=== PATIENT | female | born 1985 | race Caucasian/White ===

== ENCOUNTER 2017-10-14 08:22 | Inpatient (IN) | payer OTHER ==
[2017-10-14 09:27] LABS: ABS Basophils 0.1 10^3/ul (0-0.2); ABS Eosinophils 0 10^3/ul (0-0.6); ABS Lymphocytes 1.1 10^3/ul (1.0-4.8); ABS Monocytes 0.8 10^3/ul (0-0.8); ABS Nucleated RBC 0 10^3/ul; Eosinophil % 0.1 % (0-6); Hematocrit 40 % (35-47); Hemoglobin 13.8 g/dl (12.0-16.0); Lymphocyte % 5.9 % (25-47); Mean Corpuscular HGB Conc 34 g/dl (31-36); Mean Corpuscular Hemoglobin 31 pg (27-31); Mean Corpuscular Volume 91 fL (80-97); Mean Platelet Volume 9.4 um3 (7.4-10.4); Nucleated Red Blood Cells % 0; Platelet Count 174 10^3/ul (150-450); Red Blood Count 4.43 10^6/ul (4.00-5.40); Red Cell Distribution Width 14 % (10.5-15)
[2017-10-14 09:56] LABS: EGFR Non-African American 103.8 (>60); Uric Acid 4.9 mg/dL (2.3-6.6)
[2017-10-14 10:50] LABS: Urine Appearance Cloudy; Urine Blood 1+ (Negative); Urine Color Yellow; Urine Ketones Negative (Negative); Urine Protein Negative (Negative); Urine Specific Gravity 1.018 (1.010-1.030); Urine Urobilinogen Negative (Negative)
--- NOTE | 2017-10-14 11:08 | HP ---
General Information - General Information Maternal Age: 31 Grav: 1 Para: 0 SAB: 0 IEA: 0 Estimated Due Date: 10/06/17 Determined By: LMP Gestational Age in Weeks and Days: 41 Weeks and 1 Days Maternal Blood Type and Rh: O Positive - Results this Serology/RPR Result: Non-Reactive Rubella Result: Non-Immune HBsAg Result: Negative HIV Result: Negative GBS Culture Result: Negative Past Medical History Delivery History: See Records Delivery History Comment: Primip Pertinent Past Medical History: See Records Past Medical History Comment: Hypothyroidism on replacement Pertinent Past Surgical History: See Records Past Surgical History Comment: [place] tooth extraction Pertinent Family History: See Records Family History Comment: Mother: HTN, heart disease Father: uknown causes MGM: old age MGF: stomach, esophageal cancer - Antepartal Records Antepartal Records: Reviewed, Complicated by: - 2VC, appropriate growth. Gestational HTN in labor Review of Systems Constitutional: Uncomfortable - with UCs CV Complaint: No Respiratory: Shortness of Breath: No Gastrointestinal: No Nausea/Vomiting, Normal Bowel Movement Genitourinary: Bleeding - +bloody show, No Dysuria, No Leaking Fluid Musculoskeletal: Contractions Neurological: No Headache, No Visual Changes Movement: Normal Exam Allergies/Adverse Reactions: Allergies No Known Allergies Allergy (Verified 10/14/17 09:37) BP: 137/97 140/91 129/90 HR: 71 RR: 20 T: 98.5 Lab Values - Entire Visit: Laboratory Tests 10/14/17 10/14/17 10/14/17 09:14 09:14 09:14 WBC 19.0 H RBC 4.43 Hgb 13.8 Hct 40 MCV 91 MCH 31 MCHC 34 RDW 14 Plt Count 174 MPV 9.4 Neut % (Auto) 89.4 H Lymph % (Auto) 5.9 L [place] % (Auto) 4.1 Eos % (Auto) 0.1 Baso % (Auto) 0.5 Absolute Neuts (auto) 17.0 H Absolute Lymphs (auto) 1.1 Absolute Monos (auto) 0.8 Absolute Eos (auto) 0 Absolute Basos (auto) 0.1 Absolute Nucleated RBC 0 Nucleated RBC % 0 Sodium 135 L Potassium 3.9 Chloride 103 Carbon Dioxide 23 Anion Gap 9 BUN 9 Creatinine 0.66 Est GFR ( Amer) 133.5 Est GFR (Non-Af Amer) 103.8 BUN/Creatinine Ratio 13.6 Glucose 89 Uric Acid 4.9 Calcium 10.0 Total Bilirubin 0.40 AST 19 ALT 11 Alkaline Phosphatase 176 H Total Protein 6.9 Albumin 3.5 Globulin 3.4 Albumin/Globulin Ratio 1.0 Urine Color Urine Appearance Urine pH Ur Specific [place] Urine Protein Urine Ketones Urine Blood Urine Nitrate Urine Bilirubin Urine Urobilinogen Ur Leukocyte Esterase Urine WBC (Auto) Urine RBC (Auto) Ur Squamous Epith Cells Urine Bacteria Urine Yeast Urine Glucose Blood Type O Positive Antibody Screen Negative 10/14/17 10:16 WBC RBC Hgb Hct MCV MCH MCHC RDW Plt Count MPV Neut % (Auto) Lymph % (Auto) [place] % (Auto) Eos % (Auto) Baso % (Auto) Absolute Neuts (auto) Absolute Lymphs (auto) Absolute Monos (auto) Absolute Eos (auto) Absolute Basos (auto) Absolute Nucleated RBC Nucleated RBC % Sodium Potassium Chloride Carbon Dioxide Anion Gap BUN Creatinine Est GFR ( Amer) Est GFR (Non-Af Amer) BUN/Creatinine Ratio Glucose Uric Acid Calcium Total Bilirubin AST ALT Alkaline Phosphatase Total Protein Albumin Globulin Albumin/Globulin Ratio Urine Color Yellow Urine Appearance Cloudy Urine pH 6.0 Ur Specific [place] 1.018 Urine Protein Negative Urine Ketones Negative Urine Blood 1+ A Urine Nitrate Negative Urine Bilirubin Negative Urine Urobilinogen Negative Ur Leukocyte Esterase Negative Urine WBC (Auto) Trace(0-5/hpf) Urine RBC (Auto) 1+(3-5/hpf) A Ur Squamous Epith Cells Present A Urine Bacteria Absent Urine Yeast Present A Urine Glucose Negative Blood Type Antibody Screen - Measurements Height: 5 ft 2 in Weight: 160 lb Weight in lbs: 160 Body Mass Index (BMI): 29.2 Pre- Weight: 120 lb Weight Gained This : 40 lbs and 0 ozs - Exam Abdomen: No Upper Quadrant Pain Breast: Breast Exam Deferred CVA: No CVA Tenderness Extremities: No Edema Heart: Normal Rhythm/Heart Sounds HEENT: No Significant Findings Lungs: Clear Bilaterally Rectal: Rectal Exam Deferred Reflexes: DTR 2+ Thyroid: No Thyromegaly - Abdominal Exam Abdomen Exam: Non-Tender - between UCs, Fundal Height Consistent with Dates Abdomen Exam Comment: UCs q 3-7 min, mild to moderate - Ultrasound/Biophysical Profile Ultrasound Status: Not Done Targeted Exam Findings See L&D Outpatient Visit Provider Note for Findings: N/A Estimated Weight: 7lbs by Abdullahi Cervical Exam: 4cm Effacement: 90% Station: -1 Presenting Part: Vertex Membrane Status: Intact Bleeding/Discharge: Bloody Show EFM Findings - External Monitor Findings Baseline Heart Rate: 120 External Monitor Findings: Accelerations Present, No Pattern of Variable or Late Decelerations, Variability Moderate, Baseline Stable Contractions: Irregular, Mild, Moderate Assessment/Plan - Reason for Visit Reason for Visit: IUP at 41-1/7 here for labor evaluation - Obstetrical Risk Factors Obstetrical Risk Factors: Gestational Hypertension - New diagnosis in labor Risk Factors Comment: 2VC with appropriate growth in - Plan Plan: Active Labor Plan Comment: Admit BP labs WNL, impression: gestational hypertension. Will continue to monitor closely Pt hoping for minimal intervention. Will request pain mgmt PRN Pt is a participant in the [facility] [place] Study. Will notify researchers per protocol and draw appropriate labs per instructions Anticipate - Date/Time of Admission Date of Admission: 10/14/17 Time of Admission: 10:20
[2017-10-14] MEDS ORDERED: Ibuprofen TAB* 600 MG PO PRN (20:57)
[2017-10-14] MEDS ORDERED: Glycerin ADULT SUPP PR PRN (20:57)
[2017-10-14] MEDS ORDERED: OXYTOCIN* 10 UNITS/ML 1 ML VIAL IM ONE (20:57)
[2017-10-14] MEDS ORDERED: Dibucaine 1% 28.35 GM TUBE PR PRN (20:57)
[2017-10-14] MEDS ORDERED: Witch Hazel PAD* JAR TOPICAL PRN (20:57)
[2017-10-14] MEDS ORDERED: Acetaminophen TAB* 325 MG PO PRN (20:57)
[2017-10-14] MEDS ORDERED: Simethicone TAB* 80 MG TAB.CHEW PO SCH (21:00)
[2017-10-15] MEDS: Docusate CAP* 100 MG PO SCH ×4 (02:25→21:18)
[2017-10-15] MEDS ORDERED: Levothyroxine TAB* 75 MCG TAB PO SCH (06:00)
[2017-10-15 06:25] LABS: ABS Basophils 0.1 10^3/ul (0-0.2); ABS Eosinophils 0.1 10^3/ul (0-0.6); ABS Lymphocytes 1.9 10^3/ul (1.0-4.8); ABS Neutrophils 15.7 10^3/ul (1.5-7.7); ABS Nucleated RBC 0 10^3/ul; Eosinophil % 0.6 % (0-6); Hematocrit 33 % (35-47); Hemoglobin 11.4 g/dl (12.0-16.0); Mean Corpuscular HGB Conc 35 g/dl (31-36); Mean Corpuscular Hemoglobin 32 pg (27-31); Mean Corpuscular Volume 92 fL (80-97); Mean Platelet Volume 9.6 um3 (7.4-10.4); Nucleated Red Blood Cells % 0.1; Platelet Count 178 10^3/ul (150-450); Red Blood Count 3.54 10^6/ul (4.00-5.40); Red Cell Distribution Width 13 % (10.5-15); White Blood Count 18.8 10^3/ul (3.5-10.8)
[2017-10-15] MEDS ORDERED: [UNRECOGNIZED DRUG - OTHER] PO SCH (09:00)
[2017-10-15] MEDS: Ferrous Gluconate TAB* 324 MG TAB PO SCH ×2 (10:13→21:14)
--- NOTE | 2017-10-16 01:29 | PTEDU ---
Patient Name: TOM ECHEVARRIA TOM ECHEVARRIA selected video: Never Ever Shake a Baby to view on 10/16/2017 at 1:29:19 AM from [facility] [id number]
[2017-10-16] MEDS ORDERED: Levothyroxine TAB* 50 MCG TAB PO SCH (06:00)
[2017-10-16] MEDS: Docusate CAP* 100 MG PO SCH (07:24)
[2017-10-16 07:49] VITALS: BP 108/73
[2017-10-16] MEDS: Ferrous Gluconate TAB* 324 MG TAB PO SCH (09:20)
[2017-10-16] MEDS ORDERED: Measles, Mumps,Rubella VACC* 0.5 ML/VIAL SUBCUT ONE (10:41)
== END 2017-10-16 13:25 | disposition home or self-care (01) | DRG 775 ==
LOC: MCHOBOUT 08:22 → MCHOB 10:19
PROVIDERS: ADMIT Midwife; ATTEND Midwife
PROC: 10E0XZZ Delivery of Products of Conception, External Approach (ICD-10-PCS; principal; 2017-10-14)
PROC: 4A1HXCZ Monitoring of Products of Conception, Cardiac Rate, External Approach (ICD-10-PCS; 2017-10-14)
PROC: 0UQMXZZ Repair Vulva, External Approach (ICD-10-PCS; 2017-10-14)
DX: O48.0 Post-term pregnancy (principal); Z37.0 Single live birth; Z3A.41 41 weeks gestation of pregnancy; O99.284 Endocrine, nutritional and metabolic diseases complicating childbirth; E03.9 Hypothyroidism, unspecified; Z82.49 Family history of ischemic heart disease and other diseases of the circulatory system; Z80.0 Family history of malignant neoplasm of digestive organs; O69.89X0 Labor and delivery complicated by other cord complications, not applicable or unspecified; O13.4 Gestational [pregnancy-induced] hypertension without significant proteinuria, complicating childbirth; O70.0 First degree perineal laceration during delivery; O77.0 Labor and delivery complicated by meconium in amniotic fluid
CPT/HCPCS: 36415; 80053; 81003; 81015; 84550; 85025; 86850; 86900; 86901; 87086; 90707; A9270-GY